=== PATIENT | female | born 1995 | race Asian ===

== ENCOUNTER 2020-01-30 03:09 | Emergency (ER) | payer BC, SELFPAY ==
[~2020-01-30] VITALS: Ht 172.7 cm; Wt 63.5 kg
[2020-01-30 03:13] VITALS: Ht 172.7 cm; Wt 63.5 kg
[2020-01-30 05:36] VITALS: BP 133/84
== END 2020-01-30 05:36 | disposition home or self-care (01) ==
LOC: ED 03:09
DX: J02.9 Acute pharyngitis, unspecified (principal); Z20.828 Contact with and (suspected) exposure to other viral communicable diseases
CPT/HCPCS: 87804; Q0092